=== PATIENT | male | born 1980 | race Hispanic/Latino ===

== ENCOUNTER 2022-11-13 07:50 | Emergency (ER) | payer SELFPAY ==
[~2022-11-13] VITALS: Ht 157.5 cm; Wt 70.3 kg
[2022-11-13] VITALS (10 sets, daily range): BP systolic 140–157; BP diastolic 86–108
[2022-11-13 08:24] LABS: BASO% 0.2 % (0-3); HEMATOCRIT 50.2 % (39.0-50.0); HEMOGLOBIN 17.5 g/dl (14.0-18.0); IMMATURE GRANULOCYTES 0.1 % (0.0-5.0); LYMPH% 11.7 % (15-41); MEAN CELL VOLUME 90.3 fL CALC (80.0-100.0); MEAN CORPUSCULAR HGB 31.5 pG CALC (26.0-32.0); MEAN CORPUSCULAR HGB CONC 34.9 g/dL CAL (32.0-36.0); MONO% 7.9 % (2-13); NEUT# 8.1 thou/uL (1.82-7.42); NEUT% 80.1 % (42-76); RED BLOOD COUNT 5.56 mill/uL (4.70-6.10); RED CELL DISTRI WIDTH 12.2 % (11.5-15.5)
[2022-11-13 08:41] LABS: ALBUMIN 5.4 g/dL (3.2-5.0); ALKALINE PHOSPHATASE 112 u/l (38-126); ANION GAP 18 (6-22 (CALC)); BILIRUBIN, TOTAL 1.6 mg/dL (0.2-1.3); BUN 53 mg/dL (9-20); BUN/CREATININE RATIO 40 (12-20 (CALC)); CARBON DIOXIDE 28 mmol/l (22-30); CHLORIDE 89 mmol/l (95-108); CREATININE 1.3 mg/dL (0.7-1.3); GFR FOR AFR.AMER. > 60 ML/MIN (>=60 (CALC)); GFR OTHER RACES > 60 ML/MIN (>=60 (CALC)); POTASSIUM 3.6 mmol/l (3.5-5.1); SGOT/AST 51 u/l (17-59); SODIUM 131 mmol/l (137-146); TOTAL PROTEIN 9.4 g/dL (6.3-8.2)
[2022-11-13 08:43] LABS: CPK 759 u/l (55-170)
[2022-11-13] MEDS ORDERED: TAMSULOSIN0.4 MG PO (11:40)
== END 2022-11-13 11:55 | disposition home or self-care (01) | DRG 641 ==
LOC: ED 07:50
PROVIDERS: Family Medicine
DX: E86.0 Dehydration (principal); N40.0 Benign prostatic hyperplasia without lower urinary tract symptoms
CPT/HCPCS: Q9967